=== PATIENT | female | born 1955 | race Caucasian/White ===

== ENCOUNTER → 2020-11-09 | Outpatient (CLI) | payer OTHER | LOC: KOH-I 13:17 | DX: R42 Dizziness and giddiness (principal); I65.23 Occlusion and stenosis of bilateral carotid arteries | CPT/HCPCS: 93880 ==

== ENCOUNTER → 2020-11-29 | Outpatient (CLI) | payer OTHER | LOC: KOH-I 09:16 | DX: Z12.2 Encounter for screening for malignant neoplasm of respiratory organs (principal); F17.210 Nicotine dependence, cigarettes, uncomplicated | CPT/HCPCS: 71271 ==

== ENCOUNTER → 2020-12-15 | Outpatient (CLI) | payer OTHER | LOC: HEART 5 07:30 | DX: R55 Syncope and collapse (principal) ==

== ENCOUNTER → 2021-01-25 | Outpatient (CLI) | payer OTHER | LOC: ECHO 01-05 11:00 → HEART 5 13:22 | DX: R55 Syncope and collapse (principal) | CPT/HCPCS: 93306 ==

== ENCOUNTER → 2021-02-15 | Outpatient (CLI) | payer OTHER | LOC: HEART 5 01-27 09:15 | DX: R94.39 Abnormal result of other cardiovascular function study (principal); R55 Syncope and collapse | CPT/HCPCS: 78452; A9502; J2785 ==

== ENCOUNTER → 2021-04-12 | Outpatient (CLI) | payer OTHER | LOC: HEART 5 10:29 | DX: R06.02 Shortness of breath (principal) | CPT/HCPCS: 36600; 82803; 94060; 94729 ==